=== PATIENT | female | born 1980 | race Caucasian/White ===

== ENCOUNTER 2017-02-25 22:42 | Emergency (ER) | payer BC ==
[~2017-02-25] VITALS: Ht 160 cm; Wt 56.7 kg
[~2017-02-25 22:42] MED LIST: AZIT250T PO; FLUO40CA8 PO; IBUP-1957 PO; LAMO200T2 PO; LINA290C PO; NORT25CA PO; TRAZ-144 PO
--- NOTE | 2017-02-25 23:00 | NUR ---
Pt ambulated to room with steady gait. Pt c/o abd pain and bloating. Sts hx of IBS and pain feels the same as a flare up. Pt resting in position of comfort for self. Awaiting MD cisneros.
[2017-02-25] MEDS ORDERED: HYDROCODONE/APAP 10-325 MG TABLET PO ONE (23:15)
--- NOTE | 2017-02-25 23:25 | NUR ---
Pt seen by Dr. Polo for MSE. Pt medicated for pain, will monitor for effects of medication. Pt stable for discharge per MD. Pt to dc'd when ride home arrives.
[2017-02-25] MEDS ORDERED: HYDROCODONE/APAP 10-325 MG TABLET ONE (23:33)
--- NOTE | 2017-02-25 23:39 | NUR ---
Pt's ride home arrived and visualized. Pt given ACI. Pt verbalized understanding of dc instructions. Pt ambulated out of ER with steady gait.
[2017-02-25 23:44] VITALS: BP 118/64
== END 2017-02-25 23:45 | disposition home or self-care (01) ==
LOC: ER 22:43
DX: K58.9 Irritable bowel syndrome, unspecified (principal); G89.29 Other chronic pain; N80.9 Endometriosis, unspecified; F17.200 Nicotine dependence, unspecified, uncomplicated
CPT/HCPCS: A4663